=== PATIENT | male | born 1995 | race Caucasian/White ===

== ENCOUNTER 2021-04-18 06:43 | Emergency (ER) | payer OTHER ==
[~2021-04-18] VITALS: Ht 188 cm; Wt 86.0 kg
[2021-04-18] MEDS ORDERED: SODIUM CHLORIDE 0.9% 1,000ML IVBOLUS ONE (07:30)
--- NOTE | 2021-04-18 07:32 | NUR ---
NS BOLUS INFUSING. LABS DRAWN. URINE COLLECTED/SENT TO LAB. CALL LIGHT WITHIN REACH.
[2021-04-18 07:45] LABS: MEAN CORPUSCULAR HEMOGLOBIN 28.5 pg (27.5-34.5); MEAN CORPUSCULAR HGB CONC 33.4 g/dL (33.2-36.2); MEAN PLATELET VOLUME 7.2 fL (7.4-10.4); PLATELET COUNT 306 x10^3/uL (130-400); RED BLOOD COUNT 6.23 x10^6/uL (4.38-5.82); RED CELL DISTRIBUTION WIDTH 13.1 % (9.4-14.8)
[2021-04-18 07:55] LABS: ALBUMIN 4.2 g/dL (3.4-5.0); ANION GAP 7 mmol/L (5-15); CALCIUM 8.9 mg/dL (8.5-10.1); CHLORIDE 109 mmol/L (98-107)
[2021-04-18 07:56] LABS: CREATININE 0.73 mg/dL (0.7-1.3)
[2021-04-18 07:56] LABS: MICROSCOPIC INDICATED
[2021-04-18 08:26] LABS: BAND#(MANUAL) 1.97 x10^3/uL; BANDS%(MANUAL) 8 % (0-7); LYMPH#(MANUAL) 1.23 x10^3/uL (1-3.4); LYMPHS% (MANUAL) 5 % (22-44); MONOS#(MANUAL) 0.74 x10^3/uL (0.3-2.7); MONOS% (MANUAL) 3 % (2-9); SEG#(MANUAL) 20.66 x10^3/uL (1.8-6.8); SEGS% (MANUAL) 84 % (42-75)
[2021-04-18 08:27] LABS: <PLATELET ESTIMATE> ADEQUATE; <PLT MORPHOLOGY> NORMAL PLT MORPH; <RBC MORPHOLOGY> NORMAL
--- NOTE | 2021-04-18 08:29 | NUR ---
ADD ON ORDER FOR CT.
[2021-04-18] MEDS ORDERED: OMNIPAQUE 350 MG/ML, 100ML BOTTLE ONE (08:30)
--- NOTE | 2021-04-18 08:37 | NUR ---
PT TO CT.
[2021-04-18] MEDS ORDERED: MORPHINE SULFATE 4 MG/ML, 1ML ONE (08:44)
[2021-04-18] MEDS ORDERED: ONDANSETRON 2MG/ML, 2ML ONE (08:44)
[2021-04-18] MEDS ORDERED: FAMOTIDINE 20 MG/2 ML ONE (08:45)
[2021-04-18] MEDS ORDERED: ONDANSETRON 2MG/ML, 2ML IVPush ONE (09:00)
[2021-04-18] MEDS ORDERED: FAMOTIDINE 20 MG/2 ML IVPush ONE (09:00)
[2021-04-18] MEDS ORDERED: MORPHINE SULFATE 4 MG/ML, 1ML IVPush PRN (09:00)
--- NOTE | 2021-04-18 09:03 | NUR ---
CT RESULTS BACK, PT FOR RECHECK.
--- NOTE | 2021-04-18 09:31 | NUR ---
PT ABLE TO DRINK WATER WITHOUT INCREASE IN PAIN OR VOMITING. PAIN AT 08/24. PT AMBULATORY TO BR AND THEN DC DESK. SISTER TO P/U PT.
[2021-04-18 09:32] VITALS: BP 112/61
== END 2021-04-18 09:50 | disposition home or self-care (01) ==
LOC: ED 09:30
DX: R11.2 Nausea with vomiting, unspecified (principal); R19.7 Diarrhea, unspecified; R10.9 Unspecified abdominal pain
CPT/HCPCS: 36415; 74177; 80048; 81001; 82040; 85025; 96361; 96374; 96375; 99285; J2270; J2405; J7030; Q9967